=== PATIENT | male | born 1950 | race Hispanic/Latino ===

== ENCOUNTER 2017-08-22 10:25 | Emergency (ER) | payer SELFPAY | END 2017-08-22 14:45 | disposition home or self-care (01) | LOC: EDH 10:25 | DX: S80.01XA Contusion of right knee, initial encounter (principal); W18.39XA Other fall on same level, initial encounter; Y93.89 Activity, other specified; Y92.210 Daycare center as the place of occurrence of the external cause; Y99.8 Other external cause status | CPT/HCPCS: 73562 ==